=== PATIENT | female | born 1990 | race Two or more races ===

== ENCOUNTER 2017-01-13 19:10 | Emergency (ER) | payer SELFPAY ==
[~2017-01-13] VITALS: Ht 165.1 cm; Wt 64.0 kg
[2017-01-13] MEDS ORDERED: TETRACAINE 0.5% OPHTH DROPS 4ML OP ONE (21:15)
[2017-01-13] MEDS ORDERED: ACETAMINOPHEN 325MG TABLET PO ONE (21:15)
[2017-01-13] MEDS ORDERED: FLUORESCEIN SODIUM 1MG/STRIP OP ONE (21:15)
[2017-01-13] MEDS ORDERED: BALANCED SALT IRRIG SOLN 15ML IO ONE (22:30)
[2017-01-13 23:55] VITALS: BP 131/74
== END 2017-01-13 23:55 | disposition home or self-care (01) ==
LOC: ER 20:48
DX: H11.31 Conjunctival hemorrhage, right eye (principal)
CPT/HCPCS: 81025; 99284